=== PATIENT | female | born 1995 | race Caucasian/White ===

== ENCOUNTER 2016-12-20 23:53 | Emergency (ER) | payer OTHER, SELFPAY ==
[~2016-12-20] VITALS: Ht 165.1 cm; Wt 58.6 kg
[2016-12-21 04:02] VITALS: BP 115/58
--- NOTE | 2016-12-21 11:42 | REP ---
REASON: Pain after fall. PRIORS: None. FINDINGS: No acute fracture or destructive osseous lesion. Signed by Sam Forrester DO 12/21/2016 10:40 A
== END 2016-12-21 04:26 | disposition home or self-care (01) ==
LOC: M ED 23:53
DX: S30.0XXA Contusion of lower back and pelvis, initial encounter (principal); W19.XXXA Unspecified fall, initial encounter; Y92.9 Unspecified place or not applicable; Y93.9 Activity, unspecified; Y99.9 Unspecified external cause status; L42 Pityriasis rosea; Z88.6 Allergy status to analgesic agent; Z88.8 Allergy status to other drugs, medicaments and biological substances